=== PATIENT | male | born 1960 | race Caucasian/White ===

== ENCOUNTER 2016-06-28 12:43 | Observation (INO) | payer OTHER ==
[2016-06-28] VITALS (10 sets, daily range): BP systolic 120–154; BP diastolic 69–94; PULSE 51–81; RESP 12–20; O2SAT 95–100
[~2016-06-28] VITALS: Ht 193 cm; Wt 125.7 kg
[~2016-06-28 12:43] MED LIST: ACET-2561 PO; ALPR0.25 PO; CYCL10TA9 PO; DABI150C PO; METF500T4 PO; METO25TA6 PO; PROP150T PO; TEST200V21 IM; TURM500C7 PO; UBID10CA9 PO
--- NOTE | 2016-06-28 13:02 | ED.REPORT ---
HPI-Chest Pain 40 and Over Date of Service June 28, 2016 ED Provider: Clement Wilkinson MD Mr. Quinones is a 55-year-old male with a history of diabetes and atrial fibrillation on Xarelto s/p cardiac ablation who presents to the ED with a chief complaint of chest tightness. He states that pain began 11:40 this morning, while driving, he rates it 5/10. States "it feels like when my kid is sitting on my chest." Denies history of DE, CAD. Admits to feeling hot and diaphoretic. Denies nausea, vomiting, shortness of breath, abdominal pain, or other symptoms. Recent history of diverticulitis, for which he is finishing his antibiotics. Patient is seen by Dr. Mcdonough for cardiology. Nursing Notes Stated Complaint: CHEST PAIN TIGHTNESS Chief Complaint: Chest Pain Nursing Notes Reviewed: Yes Allergies: Coded Allergies: fluticasone (Verified Allergy, Unknown, UNKNOWN, 06/28/16) rizatriptan (Verified Allergy, Unknown, UNKNOWN, 06/28/16) sumatriptan (Verified Allergy, Unknown, UNKNOWN, 06/28/16) atorvastatin (Verified Adverse Reaction, Severe, fatigue & myalgias, ) Scheduled Glimepiride (Glimepiride) 1 Mg Tablet 1 MG PO DAILYAC Levofloxacin (Levofloxacin) 750 Mg Tablet 750 MG PO DAILY Metformin (Metformin) 500 Mg Tablet 1,000 MG PO BIDWM Metoprolol Tartrate (Metoprolol Tartrate) 25 Mg Tablet 37.5 MG PO QAM Metoprolol Tartrate (Metoprolol Tartrate) 25 Mg Tablet 25 MG PO QPM Metronidazole (Metronidazole) 500 Mg Tablet 500 MG PO TID Pravastatin (Pravastatin) 40 Mg Tablet 40 MG PO QPM Propafenone ER (Propafenone ER) 225 Mg Cap.er.12h 225 MG PO BID Rivaroxaban (Xarelto) 20 Mg Tablet 20 MG PO HS Scheduled PRN Acetaminophen (Extra Strength Non-Aspirin) 500 Mg Tablet 500 MG PO Q6H PRN PRN PRN Cyclobenzaprine (Cyclobenzaprine) 10 Mg Tablet 10 MG PO BID PRN PRN Spasm Dicyclomine (Dicyclomine) 20 Mg Tablet 20 MG PO TID PRN PRN For GI Cramps General Time Seen by MD: 13:00 Chief Complaint Chest pain Hx Obtained From: Patient Arrived By: Walk-in Sudden in Onset?: No Onset Occurred: 1 - 4 hours ago Symptom Duration: Since onset Location: : Chest left: Chest right Quality: Painful (Tight), Pressure Severity: Current: Pain level 5 out of 10 Context Related History: Reports: Arrhythmia, Diabetes mellitus Recent Healthcare: No recent doctor visit Past Medical History Past Medical History RONALDO Right sided kidney stone Dyslipidemia, stopped his statin 2 months ago Colon polyps -last colonoscopy 01/2012 polyp removed with cold forceps Left shoulder injury with previous steroid injections Hypogonadism -MRI pituitary 2012 minimal right frontal chronic microvascular white matter ischemic changes, no pituitary microadenoma Atrial fibrillation Reports: Diabetes mellitus, Transient ischemic attack Past Surgical History Hernia repair Cardiac ablation Reports: Tonsillectomy Family History Uncle has CHF Brother had "bought" with A-fib Several cousins with A-fib Father of stroke at 72 Father had heart attack Smoking History Never Smoker Social History Drug Use: Denies drug use Other Social History: Good social support, 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 Denies heavy lifting. Ambulatory Status Independent Review of Systems Review of Systems Note: + Feels hot Constitutional: Denies: Fever Respiratory: Denies: Non-productive cough, Shortness of breath Cardiovascular: Reports: Chest pain (Tightness, pressure) GI: Denies: Abdominal pain, Nausea, Vomiting Skin: Reports Diaphoresis Complete sys rev & neg: except as marked. Physical Exam General: Well appearing, well developed, obese, no acute distress. Head: Atraumatic, normocephalic. Eyes: No scleral icterus or injection. No discharge. Vision grossly intact. ENT: Voice clear, hearing grossly intact. Respiratory: Regular rate and rhythm. Breath sounds present, clear to auscultation and equal bilaterally. No respiratory distress. No increased work of breathing, speaks in complete sentences. Cardiovascular: Regular rate and rhythm, without murmur, gallop or rub. No pedal edema. Gastrointestinal: Abdomen protuberant and non-tender without guarding or rebound. Bowel sounds normoactive. Chest: Normal to inspection. Tender to palpation over fourth rib adjacent to sternum. Skin: Appears flushed in the face and slightly sweaty. Otherwise warm and dry Neurological: Grossly nonfocal. Psychological: Alert and oriented. Speech appropriate, linear and logical. Behavior appropriate. Initial Vital Signs Vital Signs (First) Date Time Temp Pulse Resp B/P Pulse Ox O2 Delivery O2 Flow Rate FiO2 06/28/16 12:46 36.8 72 16 154/94 97 Room Air 06/28/16 13:40 2 Initial VS: Reviewed, Vital signs abnormal (elevated blood pressure) Interpretation & Diagnostics Lab Results Interpretation Result Diagram: 06/28/16 1254 06/28/16 1254 Test 06/28/16 12:54 White Blood Count 5.5th/mm3 (3.8-10.1) Red Blood Count 4.85mil/mm3 (4.40-5.80) Hemoglobin 14.8g/dL (13.8-17.2) Hematocrit 42.7% (41.0-50.0) Mean Corpuscular Volume 88.0fL (81-100) Mean Corpuscular Hemoglobin 30.5pg (27.0-35.0) Mean Corpuscular Hemoglobin Concent 34.7% (32.0-37.0) Red Cell Distribution Width 12.7% (12.3-15.4) Platelet Count 255bil/L (150-400) Neutrophils (%) (Auto) 52.6% (40-74) Lymphocytes (%) (Auto) 35.8% (14-46) Monocytes (%) (Auto) 9.6% (4-12) Eosinophils (%) (Auto) 1.1% (0-5) Basophils (%) (Auto) 0.7% (0-3) Sodium Level 139mEq/L (134-144) Potassium Level 4.2mEq/L (3.5-5.2) Chloride Level 101mEq/L (97-108) Carbon Dioxide Level 21mmol/L (18-29) Blood Urea Nitrogen 15mg/dL (6-24) Creatinine 0.77mg/dL (0.76-1.27) Estimat Glomerular Filtration Rate 112mL/min (>59) Glucose Level 138mg/dL (60-99) Calcium Level 9.7mg/dL (8.5-10.1) Magnesium Level 2.0mg/dL (1.6-2.6) Total Bilirubin 0.4mg/dL (0.0-1.2) Aspartate Amino Transf (AST/SGOT) 24U/L (0-50) Alanine Aminotransferase (ALT/SGPT) 31U/L (0-44) Alkaline Phosphatase 73U/L (25-150) Troponin T < 0.010ug/L (0.0-0.011) Total Protein 7.0g/dL (6.4-8.4) Albumin 4.1g/dL (3.4-5.0) Hold Parsons Top Tube Received (Received) ECG Interpretation ECG Interpretation: Sinus rhythm rate 65 Borderline prolonged GA interval Time: 12:55 Interpreted by: ED physician ECG Interpretation: Sinus rhythm rate 78 Borderline prolonged GA interval Repeat ECG unchanged with worsening pain Time: 13:27 Interpreted by: ED physician X-Ray Chest Interpretation Chest Xray Interpretation: IMPRESSION: Stable chest. No acute cardiopulmonary process is evident. Dictated by: Deonte Carey M.D. on 06/28/2016 at 12:26 View: Portable, 1 view Interpretation / Wet Read by: Interpret - Radiologist Re-Eval/Medical Decision Source of Hx: Old records Time of Eval: 13:24 Patient Status: Condition improved Re-Evaluation/Progress Note: Patient rechecked. Additional history obtained. Time of Eval: 15:23 Patient Status: Condition improved Re-Evaluation/Progress Note: Patient reports one 7-minute episode of more severe pain around 14:30. Otherwise patient's pain has greatly reduced. Discussed with patient x-ray and lab results, diagnosis, and plan for admit. Patient agrees with plan for care and all questions were addressed. Consultation : Referral / Consult Name: Reji Ríos MD Consulted With: Hospitalist Call Returned at: 15:45 Licensing Officer: Agrees with eval, Agrees with plan, Accepts admit Counseled Regarding: Diagnosis, Lab results, Need for admission Discharge & Departure Primary Impression: Acute coronary syndrome Disposition: ADMITTED TO HOSPITAL Discharge Condition All VS Reviewed: Yes Condition: Improved Referrals: Marguerite Workman MD (PCP) EDSupervising Provider for APC: Clement Wilkinson MDibbipin Attestation Portions of this note were transcribed by Minnie Tripp. I, Dr. Wilkinson, personally performed the history, physical exam, and medical decision-making; I reviewed and confirmed the accuracy of the information in the transcribed note. Signed by: Luiz Walls, 06/28/2016, 16:19 copies to: Marguerite Workman MD, Kirk H MD June 28, 2016 13:02 Claudy Jiménez PA-C June 28, 2016 13:12 MINNIE TRIPP June 28, 2016 13:37
[2016-06-28] MEDS ORDERED: Ondansetron 2 mg/mL 2 mL Inj IVPUSH ONE (13:05)
[2016-06-28] MEDS ORDERED: 0.9% Sodium Chloride 1,000 ML IV ONE (13:05)
[2016-06-28 13:09] LABS: BASOPHILS % (AUTO) 0.7 % (0-3); EOSINOPHILS % (AUTO) 1.1 % (0-5); MONOCYTES % (AUTO) 9.6 % (4-12); Mean Corpuscular Hemoglobin 30.5 pg (27.0-35.0); NEUTROPHILS % (AUTO) 52.6 % (40-74); Platelet Count 255 bil/L (150-400)
[2016-06-28] MEDS ORDERED: MeTOProlol 1 mg/mL 5 mL Inj IVPUSH PRN (13:25)
[2016-06-28] MEDS ORDERED: Nitroglycerin 2% 1 Gm Ointment TOPICAL ONE (13:25)
--- NOTE | 2016-06-28 13:28 | DRSVH ---
PROCEDURE: X-RAY CHEST ONE VIEW, PORTABLE ([id number]) INDICATIONS: chest pain TECHNIQUE: One view of the chest was acquired. COMPARISON: [facility], CT, CT CHEST ABD PELVIS W CON, 04/28/2016, 14:55. [facility], CR, CHEST 1VW (PORTABLE), 07/05/2014, 3:17. FINDINGS: Surgical changes and devices: None. Lungs and pleura: No pleural effusions or pneumothorax. Lungs are clear. Mediastinum: Mediastinal contours appear normal. Heart size is normal. Bones and chest wall: No suspicious bony lesions. Overlying soft tissues appear unremarkable. IMPRESSION: Stable chest. No acute cardiopulmonary process is evident. Dictated by: Deonte Carey M.D. on 06/28/2016 at 12:26 Approved by: Deonte Carey M.D. on 06/28/2016 at 12:27
[2016-06-28 13:36] LABS: TROPONIN T < 0.010 ug/L (0.0-0.011)
[2016-06-28] MEDS ORDERED: PROP225C6 PO (15:08)
[2016-06-28] MEDS ORDERED: RIVA20TA PO (15:08)
[2016-06-28] MEDS ORDERED: PRAV40TA PO (15:09)
[2016-06-28] MEDS ORDERED: GLIM1TAB PO (15:09)
[2016-06-28] MEDS ORDERED: DICY20TA10 PO (15:10)
[2016-06-28] MEDS ORDERED: LEVO750T39 PO (15:12)
[2016-06-28] MEDS ORDERED: METR500T19 PO (15:12)
[2016-06-28] MEDS ORDERED: Ondansetron 2 mg/mL 2 mL Inj IVPUSH PRN ×2 (16:10→18:15)
[2016-06-28] MEDS ORDERED: Heparin 25K Unit/500mL 0.45 NS 25,000 UNIT in IV Premix 1 EACH IV SCH (16:10)
[2016-06-28] MEDS ORDERED: Alum-Mag Hydrox-Simeth 30 mL Suspension PO PRN ×2 (16:10→18:15)
[2016-06-28] MEDS: Heparin 5,000 Unit/mL Inj IVPUSH PRN ×2 (16:18→23:07)
--- NOTE | 2016-06-28 17:15 | NUR ---
Admit: Patient arrived to [facility] @ approx 1650. Ambulated from stretcher to bed. Alert & oriented x 3. Complains of chest pressure 5/10 on pain scale. Report from ER states that patient having unresolved chest pressure 2-5/10 on pain scale. Heparin infusing @ 1000u/hr. Also, complains of HILLIARD 7/10 on pain scale. Nitro ointment on left chest. Tylenol 975mg administered, Ice pack to neck. MD notified in person of chest pressure and HILLIARD. SB 1st degree AV block rate of 54 per television script writer. Denies SOB. Bed rails up x 2, bed in low and locked position.
[2016-06-28] MEDS ORDERED: Polyethylene Glycol (PEG) 17 Gm Powder PO PRN (18:15)
[2016-06-28] MEDS ORDERED: Glucose 40% Oral Gel 15 Gm Tube PO PRN (18:20)
--- NOTE | 2016-06-28 20:02 | HP ---
[address] [address] HISTORY AND PHYSICAL PATIENT: EVON WYATT V : 1960 MR#: [id number] ADMIT: 06/28/2016 JOB ID: [id number] PRIMARY CARE PROVIDER: Jorge Workman MD. Patient admitted from the ED, observational status, Green Team. CHIEF COMPLAINT: Chest pain. HISTORY OF PRESENT ILLNESS: This is a 55-year-old male who has no known coronary artery disease but has had an ablation for AFib with Dr. Mcdonough. 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 It kind of came on, kind of waxed and waned and then got a little bit better. He was thinking of stopping at [facility] [place], but as it was getting better, he kept driving and drove all the way back up to [place] and it got a little bit worse, so he came over here to [facility] and was evaluated in the ED by Dr. Wilkinson and we would like to admit him for unstable angina, having placed him on IV heparin, noting some continued pain. His EKG shows some nonspecific inferior and lateral ST-T wave changes. No ST elevation. His initial troponin was negative. This pain was nonradiating and located under just to the left of his sternum. It is not positional. The patient says at 1st if he pushed on it, it hurt a little bit, but now he denies that. We repeated an EKG in the room and that is unchanged at this point in time. He has not had this before. Patient is also on his last day of Flagyl and Levaquin p.o. for recent diverticulitis symptoms having resolved at this point in time. REVIEW OF SYSTEMS: A complete review of systems obtained for all pertinent positives in HPI as above, rest of systems negative. PAST MEDICAL HISTORY: 1. Obstructive sleep apnea on CPAP. 2. Dyslipidemia. 3. Colon polyps 4. AFib ablation two years ago with Dr. Mcdonough. 5. Currently treated for diverticulitis. 6. Colon polyps. 7. Left shoulder injury. 8. Hypogonadism. 9. Tonsillectomy. 10. Hernia repair. MEDICATIONS: 1. Levaquin and Flagyl p.o. 2. Xarelto 20 at bedtime. 3. Metoprolol 25 in the morning, 37.5 in the evening. 4. Pravastatin 40 daily. 5. Propafenone ER 225 b.i.d. 6. Glimepiride mg q.a.m. 7. Metformin 100 mg b.i.d. ALLERGIES: None. SOCIAL HISTORY: Lives his . Consumes no alcohol and is not smoking any tobacco at this point in time. FAMILY HISTORY: Colon cancer in his brother who developed colorectal cancer at age 49, father with coronary artery disease and CABG at 70. PHYSICAL EXAMINATION: Afebrile, heart rate 54, blood pressure 146/80, respiratory rate 20, O2 sats 100% on 2 liters. The patient looks totally comfortable sitting up. He kind of gregarious. He does note a little bit of this discomfort in his chest, but he is not in any distress. Skin is warm and dry. Eyes: PERRLA. EOMs intact. Mouth shows adequate hydration. No lesions. Cardiac exam is regular. No overt murmur. Lungs are clear to auscultation and percussion. Abdomen is soft, nonacute, benign. Extremities show no edema and has no tenderness. Cranial nerves 2-12 are intact. No gross motor or sensory defects noted. DIAGNOSES: 1. Unstable angina. As the patient is continuing to have chest discomfort, I did call and review this with Dr. Hastings on-call for Cardiology. At this time, he would like to continue the heparin and aspirin and I will be continuing with the patient's pravastatin and metoprolol. As he is on heparin, we will not continue his Xarelto at this point in time. Will get repeat EKGs, troponins now, echo, review those and make further decisions depending on his symptoms and the results of those tests. 2. History of atrial fibrillation, present on admission, stable. Continue Propafenone, metoprolol, pravastatin. 3. Obstructive sleep apnea, present on admission, stable. Continue patient's home CPAP. 4. Diverticulitis, present on admission, resolved. I am going to stop the patient's antibiotics and wonder whether the Flagyl may have upset the patient's stomach somewhat. Will give him a little Protonix, but we will be stopping those antibiotics tonight. 5. Type 2 diabetes. We are going to hold the patient's glimepiride and metformin at this point in time and provide correction insulin and get a baseline hemoglobin A1c. 6. CODE STATUS: FULL CODE. 7. Disposition: Patient lives with his . His primary care provider is Jorge Workman. Blood Splatter Analyst is Dr. Mcdonough.
[2016-06-28] MEDS: Pantoprazole 4 mg/mL 10 mL Inj IVPUSH SCH (20:58)
[2016-06-28] MEDS: Insulin LISPRO 300 Unit/3 mL Inj SUBQ SCH (22:00)
--- NOTE | 2016-06-28 23:19 | NUR ---
Transfer to PCC room 2000 Patient c/o chest pain 5/10 and headache 8/10. Given 2mg morphine IV. 30 minutes later patient reports pain is still 2/10 chest pain ad pressure and headache 4/10. Vitals stable. Tele in place. Heparin gtt infusing at 20mls/hr or 1000units/hr. nitro paste on chest. patient transferred to 2000 with all belongings and family at bedside. will continue to monitor.
[2016-06-29] VITALS (7 sets, daily range): BP systolic 114–129; BP diastolic 72–78; PULSE 55–68; RESP 18–20; O2SAT 97–99
[2016-06-29 01:24] LABS: APPEARANCE,URINE CLEAR (CLEAR,HAZY); COLOR,URINE YELLOW (YELLOW); OCCULT BLOOD,URINE NEGATIVE (NEGATIVE); UROBILINOGEN,URINE NORMAL (NORMAL)
--- NOTE | 2016-06-29 04:24 | NUR ---
Chest Pain / IV Heparin / Tele Pt transferred to PCC from [facility] for Chest Pain. Pt arrived on PCC with Chest pain 2/10 and Headache 4/10. Nitro-paste still on Pts chest. VS stable and afebrile, RA sats 98%. Pt medicated with IV Morphine 4 mg and Chest pain resolved with no further c/o chest pain this shift. Tele SB-SR with 1st AVB with HR 50-60s, per Pot Room Supervisor. IV Heparin infusion per Cardiac Protocol. Care onging.
[2016-06-29] MEDS: Heparin 5,000 Unit/mL Inj IVPUSH PRN ×2 (04:35→11:11)
[2016-06-29] MEDS: Pantoprazole 4 mg/mL 10 mL Inj IVPUSH SCH (07:26)
[2016-06-29] MEDS: Insulin LISPRO 300 Unit/3 mL Inj SUBQ SCH ×2 (07:30→11:54)
--- NOTE | 2016-06-29 12:12 | NUR ---
Social Work: Screen D: Per EMR review, pt is a 55 year old male admitted for ACS. [facility]. PCP is Jessie Workman MD. NOK is Rosamaria Stacie, . Advanced directives not completed- pt provided with information. Readmit score is low, 1/. Pt lives in [place] with his . 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 Pt has been I during admission and no sw needs are anticipated at this time. A: Pt who is I at baseline. P: Anticiapte pt to discharge home when medically stable; OVERLOCK HEMMER to continue to follow. SVETLANA Cartwright
--- NOTE | 2016-06-29 12:17 | DRSVH ---
[facility] [address] [place] [address] Echocardiogram Report Name: EVON WYATT III Study Date: 06/29/2016 Height : 76 in Hospital Exam Location: [facility] Weight : 277 lb Gender: Male BSA: 2 .5 m2 : 1960 Age: 55 yrs BP: 12 2/74 mmHg Reason For Study: CHEST PAIN Ordering Physician: [facility], HOSPITALIST Performed By: Rosamaria Zuleta Referring Physician: DR. YOST, DR. Mateus AYERS Interpretation Summary The left ventricle is normal in size. Left ventricular systolic function is normal. The ejection fraction is estimated to be 60-65%. There are no focal wall motion abnormalities. Assessment of diastolic parameters indicates a relaxation abnormality of the left ventricle, consistent with normal filling pressures. The right ventricle is normal in size and function. Right ventricular systolic pressure is estimated to be 23 mmHg plus the clinically estimated CVP which cannot be estimated on this exam. The left atrium is mildly dilated. Right atrial size is normal. There is no significant valvular heart disease. The aortic root is normal size. No significant changes since last study. Procedure: A two-dimensional transthoracic echocardiogram with color flow and Doppler was performed. The apical views were difficult to obtain and are suboptimal in quality. The subcostal views were difficult to obtain and are suboptimal in quality. A contrast injection of Definity was performed to improve assessment of LV function. Contrast was injected into an intravenous site in the left arm. A total of 4 cc of contrast was given. Comparison is made with the echocardiogram of 07-28-2014. The patient was in sinus during the exam. Left Ventricle: The left ventricle is normal in size. Left ventricular wall thickness is at the upper limits of normal. Left ventricular systolic function is normal. The ejection fraction is estimated to be 60-65%. There are no focal wall motion abnormalities. Spectral Doppler of the mitral valve is reversed, with an E/A wave ratio < 1.0. Assessment of diastolic parameters indicates a relaxation abnormality of the left ventricle, consistent with normal filling pressures. Right Ventricle: The right ventricle is normal in size and function. Atria: The left atrium is mildly dilated. Right atrial size is normal. There is no Doppler evidence for an atrial septal defect. Mitral Valve: The mitral valve leaflets appear normal. There is no evidence of stenosis, fluttering, or prolapse. There is no mitral regurgitation noted. Aortic Valve: The aortic valve is trileaflet. The aortic valve opens well. No aortic regurgitation is present. Tricuspid Valve: The tricuspid valve leaflets are thin and pliable. There is a trace or physiologic amount of tricuspid regurgitation. Right ventricular systolic pressure is estimated to be 23 mmHg plus the clinically estimated CVP which cannot be estimated on this exam. Pulmonic Valve: The pulmonic valve is not well seen, but is grossly normal. There is no pulmonic valvular regurgitation. There is no significant valvular heart disease. Great Vessels: The aortic root is normal size. The dimensions of the ascending aorta are normal. The pulmonary artery is normal size. The inferior vena cava was not visualized. Pericardium/ Pleura There is no pericardial effusion. There is no pleural effusion. MMode/2D Measurements & Calculations LVIDd: 5.2 cm LA dimension: 5.2 cm RA long axis LVOT diam: 2.2 cm LVIDs: 3.0 cm AoV Opening FS: 41.0 % LA A2 area: 24.5 cm RA area EPSS: 0.58 cm LA A4 area: 27.6 cm Ao root diam IVSd: 1.1 cm LA length (vol) : 20.0 cm LVPWd: 1.1 cm RA vol asc Aorta Diam LA vol: 90.6 ml : 57.0 ml LA vol index RA Ao Arch Diam (Prox : 22.4 mm2 Trans): 3.1 cm : 35.6 ml/m2 LV hsu. diameter/BSA LV sys. diameter/BSA RVD2 (mid) (cm/m^2): 2.0 (cm/m^2): 1.2 : 4.0 cm Doppler Measurements & Calculations Ao V2 max MV E max rodrigo MV E/A: 0.77 TR max rodrigo : 201.1 cm/sec : 78.5 cm/sec Med Peak E' Rodrigo : 238.5 cm/sec Ao max P.2 mmHg MV A max rodrigo TR max PG Ao mean P.2 mmHg : 101.7 cm/sec E/E' med: 11.6 : 22.8 mmHg LVOT Max Rodrigo MV P1/2t: 95.1 msec Lat Peak E' Rodrigo PA V2 max : 129.0 cm/sec : 92.6 cm/sec E/E' lat: 9.2 PA mean PG TENNILLE(I,D): 2.4 cm E/e' average sev ratio: 0.65 PA Accel Time Pulm A Revs Dur : 0.13 sec MV A dur : 0.16 sec MV P1/2t max rodrigo Ao V2 mean LV V1 max PG PA V2 mean : 126.7 cm/sec : 65.9 cm/sec Ao V2 VTI: 42.2 cm LV V1 VTI MVA(P1/2t): 2.3 cm2 : 27.5 cm TENNILLE(V,D): 2.4 cm2 TENNILLE indexed to BSA Pulm A Revs Dur - MV A (cm^2/m^2): 0.96 Dur: -0.01 msec Reading Physician:PM
--- NOTE | 2016-06-29 13:44 | NUR ---
stress test patient left for stress test at 1345hrs. denies CP/SOB. satellite project site monitor notified that patient will be off tele for test. Heparin gtt on hold for test, per Dr Cordova's orders.
--- NOTE | 2016-06-29 15:02 | NUR ---
returned from stress test. denies CP/SOB. heparin gtt restarted.
--- NOTE | 2016-06-29 16:30 | PCM.DIMED ---
Discharge Instructions Date of Service June 29, 2016 Dates of Hospitalization June 28, 2016 at 16:29 Discharge Diagnosis Discharge Diagnosis Chest pain Test Results ETT was significant for the patient having chest pain but normal EKG during the test. Patient had a hypertensive blood pressure response. Diet Heart Healthy Activity No restrictions (The patient may resume his usual activities gradually as tolerated.) Call your provider Fever or Chills, Shortness of breath, Bleeding, Chest pain, Vomitting, Weakness (unilateral) Patient Instructions Follow-up Provider: Honorio Browning MD Follow-up with PCP in: 1 week Provider: Darwin Mcdonough MD Follow-up in: 2 weeks Mid-level Provider (F9): Marguerite Workman MD Follow-up with Mid-level in: 2 weeks Lars Cordova MD June 29, 2016 16:30
--- NOTE | 2016-06-29 17:29 | NUR ---
Discharge home discharge instructions, medications, and follow-up recommendations reviewed with patient and spouse. Questions answered at this time. patient verbalized understanding and agrees with plan of care. patient stated that he will call PCP and his business development recruiter to schedule his follow-up appointments first thing in the morning.
--- NOTE | 2016-06-29 19:57 | PCM.DC.MED ---
Discharge Summary Date of Service June 29, 2016 Dates of Hospitalization Date of Hospital Admission June 28, 2016 at 16:29 Date of Discharge: June 29, 2016 Providers: Admitting Physician: Reji Ríos MD Primary Care Physician: Marguerite Workman MD Attending Physician: Reji Ríos MD Diagnosis at Time of Discharge Diagnosis at Time of Discharge Chest pain Procedures XRay, CTs & MRIs PROCEDURE: X-RAY CHEST ONE VIEW, PORTABLE ([id number]) INDICATIONS: chest pain TECHNIQUE: One view of the chest was acquired. COMPARISON: [facility], CT, CT CHEST ABD PELVIS W CON, 04/28/2016, 14:55. [facility], CR, CHEST 1VW (PORTABLE), 07/05/2014, 3:17. FINDINGS: Surgical changes and devices: None. Lungs and pleura: No pleural effusions or pneumothorax. Lungs are clear. Mediastinum: Mediastinal contours appear normal. Heart size is normal. Bones and chest wall: No suspicious bony lesions. Overlying soft tissues appear unremarkable. IMPRESSION: Stable chest. No acute cardiopulmonary process is evident. Dictated by: Deonte Carey M.D. on 06/28/2016 at 12:26 Approved by: Deonte Carey M.D. on 06/28/2016 at 12:27 Cardiac Echo Impression Echocardiogram Report Name: EVON WYATT III Study Date: 06/29/2016 Height : 76 in Hospital Exam Location: [facility] Weight : 277 lb Gender: Male BSA: 2 .5 m2 : 1960 Age: 55 yrs BP: 12 2/74 mmHg Reason For Study: CHEST PAIN Ordering Physician: [facility], HOSPITALIST Performed By: Rosamaria Zuleta Referring Physician: DR. WORKMAN, DR. Mateus MCDONOUGH Interpretation Summary The left ventricle is normal in size. Left ventricular systolic function is normal. The ejection fraction is estimated to be 60-65%. There are no focal wall motion abnormalities. Assessment of diastolic parameters indicates a relaxation abnormality of the left ventricle, consistent with normal filling pressures. The right ventricle is normal in size and function. Right ventricular systolic pressure is estimated to be 23 mmHg plus the clinically estimated CVP which cannot be estimated on this exam. The left atrium is mildly dilated. Right atrial size is normal. There is no significant valvular heart disease. The aortic root is normal size. No significant changes since last study. Other Diagnostics During ETT stress testing patient did have chest pain towards the end of the test with blood pressure of 200/96. Of note patient was not allowed his metoprolol morning dose prior to the test. Patient experience no EKG changes throughout the test. Brief History This is a 55-year-old male who has no known coronary artery disease but has had an ablation for AFib with Dr. Mcdonough. 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 It kind of came on, kind of waxed and waned and then got a little bit better. He was thinking of stopping at [place], but as it was getting better, he kept driving and drove all the way back up to [place] and it got a little bit worse, so he came over here to [facility] and was evaluated in the ED by Dr. Wilkinson and we would like to admit him for unstable angina, having placed him on IV heparin , noting some continued pain. His EKG shows some nonspecific inferior and lateral ST-T wave changes. No ST elevation. His initial troponin was negative. Patient was brought in under observation to the hospital service for further evaluation and treatment. Hospital Course This is a 55-year-old male who has no known coronary artery disease but has had an ablation for AFib with Dr. Mcdonough. 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 It kind of came on, kind of waxed and waned and then got a little bit better. He was thinking of stopping at [place], but as it was getting better, he kept driving and drove all the way back up to [place] and it got a little bit worse, so he came over here to [facility] and was evaluated in the ED by Dr. Wilkinson and we would like to admit him for unstable angina, having placed him on IV heparin , noting some continued pain. His EKG shows some nonspecific inferior and lateral ST-T wave changes. No ST elevation. His initial troponin was negative. Patient was brought in under observation to the hospital service for further evaluation and treatment. 1. Unstable angina. As the patient is continuing to have chest discomfort, the case was reviewed with Dr. Hastings on-call for Cardiology. At this time, he would like to continue the heparin and aspirin and commended continuing with the patient's pravastatin and metoprolol. As he is on heparin, we did not continue his Xarelto at this point in time. We obtained repeat EKGs, troponins now, echo, review those and make further decisions depending on his symptoms and the results of those tests. Case was reviewed with Dr. Honorio Browning who recommended that the patient have an exercise treadmill test which patient had this afternoon. Patient did well however his blood pressure got up to 200/96 without having his metoprolol today and she had some chest pain. However, there was no EKG changes. Dr. Browning recommended discharging the patient home. 2. History of atrial fibrillation, present on admission, stable. Continue Propafenone, metoprolol, pravastatin. 3. Obstructive sleep apnea, present on admission, stable. Continue patient's home CPAP. 4. Diverticulitis, present on admission, resolved. We stopped the patient's antibiotics and wondered whether the Flagyl may have upset the patient's stomach somewhat. We gave him a little Protonix. 5. Type 2 diabetes. We held the patient's glimepiride and metformin at this point in time and provide correction insulin and got a baseline hemoglobin A1c which was 6.4. 6. CODE STATUS: FULL CODE. 7. 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 Mcdonough. Exam Vital Signs (Last) Date Time Temp Pulse Resp B/P Pulse Ox O2 Delivery O2 Flow Rate FiO2 06/29/16 16:37 64 20 129/78 98 Room Air 06/29/16 12:51 36.7 06/28/16 16:53 2.00 Exam General: Patient is in no apparent distress. HEENT: Head is atraumatic and normocephalic. Eyes: Pupils are equally round and reactive to light and accommodation. Extraocular muscles are intact. Sclera are white, anicteric. Subconjunctival mucosa is pink. Ears and nose are unremarkable. Oropharynx: There is no mucosal lesions, there is no thrush, there is no pharyngitis. Neck: Is supple, there are no nodes, or masses or tenderness. Chest: Is clear to auscultation and percussion. There are no rales, rhonchi, wheezes or rubs. Heart: Rate, rhythm is regular. There is no murmur, rub or gallop. Abdomen: Good bowel sounds are present. Abdomen is soft, nontender, no organomegaly or masses were appreciated. Extremities: Are symmetrical and well perfused. There is no edema, there is no cellulitis, no rash. Neurologic: There are no focal neurological deficits. Cranial nerves II through XII are intact. There are no sensory or motor deficits. Psychiatric: Patients mood is calm and shows no sign of agitation. Genital: Deferred Rectal: Deferred Test 06/28/16 12:54 06/29/16 00:43 06/29/16 03:57 06/29/16 12:05 White Blood Count 5.5th/mm3 (3.8-10.1) Red Blood Count 4.85mil/mm3 (4.40-5.80) Hemoglobin 14.8g/dL (13.8-17.2) Hematocrit 42.7% (41.0-50.0) Mean Corpuscular Volume 88.0fL (81-100) Mean Corpuscular Hemoglobin 30.5pg (27.0-35.0) Mean Corpuscular Hemoglobin Concent 34.7% (32.0-37.0) Red Cell Distribution Width 12.7% (12.3-15.4) Platelet Count 255bil/L (150-400) Neutrophils (%) (Auto) 52.6% (40-74) Lymphocytes (%) (Auto) 35.8% (14-46) Monocytes (%) (Auto) 9.6% (4-12) Eosinophils (%) (Auto) 1.1% (0-5) Basophils (%) (Auto) 0.7% (0-3) Erythrocyte Sedimentation Rate 4mm/hr (0-30) D-Dimer < 0.50mg/L FEU (<0.50) Hemoglobin A1c 6.4% (4.8-5.6) Magnesium Level 2.0mg/dL (1.6-2.6) Total Bilirubin 0.4mg/dL (0.0-1.2) Aspartate Amino Transf (AST/SGOT) 24U/L (0-50) Alanine Aminotransferase (ALT/SGPT) 31U/L (0-44) Alkaline Phosphatase 73U/L (25-150) Total Creatine Kinase 82U/L (21-232) Total Protein 7.0g/dL (6.4-8.4) Albumin 4.1g/dL (3.4-5.0) Procalcitonin 0.05ng/mL (0.00-0.08) Thyroid Stimulating Hormone (TSH) 1.150uIU/mL (0.450-4.500) Hold Parsons Top Tube Received (Received) Urine Color Yellow (YELLOW) Urine Appearance Clear (CLEAR,HAZY) Urine pH 6.0 (5.0-8.0) Urine Specific [place] 1.010 (1.003-1.035) Urine Protein Negativemg/dL (NEG,TRACE) Urine Glucose (UA) Negativemg/dL (NEGATIVE) Urine Ketones Negativemg/dL (NEGATIVE) Urine Occult Blood Negative (NEGATIVE) Urine Nitrite Negative (NEGATIVE) Urine Bilirubin Negative (NEGATIVE) Urine Urobilinogen Normalmg/dL (NORMAL) Urine Leukocyte Esterase Negative (NEGATIVE) Urine RBC 0-2/hpf (0-2) Urine WBC 0-5/hpf (0-5) Urine Epithelial Cells Occasional/hpf (NONE-MOD) Urine Crystals None seen (NONE SEEN) Urine Bacteria None/hpf (NONE-FEW) Urine Hyaline Casts None/lpf (NONE) Urine Granular Casts None seen (NONE SEEN) Urine Waxy Casts None seen (NONE SEEN) Urine Red Blood Cell Casts None seen (NONE SEEN) Urine White Blood Cell Casts None seen (NONE SEEN) Urine Mucus None seen (None Seen) Urine Trichomonas None seen (NONE SEEN) Urine Yeast None (NONE SEEN) Urinalysis Comment None Urine Culture Reflexed Not indicated Hold Urine Received (Received) Sodium Level 137mEq/L (134-144) Potassium Level 4.3mEq/L (3.5-5.2) Chloride Level 101mEq/L (97-108) Carbon Dioxide Level 22mmol/L (18-29) Blood Urea Nitrogen 14mg/dL (6-24) Creatinine 0.88mg/dL (0.76-1.27) Estimat Glomerular Filtration Rate 96mL/min (>59) Glucose Level 120mg/dL (60-99) Calcium Level 8.7mg/dL (8.5-10.1) Troponin T < 0.010ug/L (0.0-0.011) Test 06/29/16 16:15 Activated Partial Thromboplast Time 32.7sec (22.8-33.0) Discharge Medications Discharge Medications Glimepiride (Glimepiride) 1 Mg Tablet 1 MG PO DAILYAC (Reported) Metformin (Metformin) 500 Mg Tablet 1,000 MG PO BIDWM (Reported) Metoprolol Tartrate (Metoprolol Tartrate) 25 Mg Tablet 37.5 MG PO QAM (Reported ) Metoprolol Tartrate (Metoprolol Tartrate) 25 Mg Tablet 25 MG PO QPM (Reported) Pravastatin (Pravastatin) 40 Mg Tablet 40 MG PO QPM (Reported) Propafenone ER (Propafenone ER) 225 Mg Cap.er.12h 225 MG PO BID (Reported) Rivaroxaban (Xarelto) 20 Mg Tablet 20 MG PO HS (Reported) As needed Acetaminophen (Extra Strength Non-Aspirin) 500 Mg Tablet 500 MG PO Q6H PRN PRN PRN (Reported) Cyclobenzaprine (Cyclobenzaprine) 10 Mg Tablet 10 MG PO BID PRN PRN Spasm ( Reported) Dicyclomine (Dicyclomine) 20 Mg Tablet 20 MG PO TID PRN PRN For GI Cramps ( Reported) Followup Plan Disposition: Patient is being discharged home. Discharge Diet: Heart Healthy Discharge Activity: No restrictions (The patient may resume his usual activities gradually as tolerated.) Follow-up Provider: Honorio Browning MD Follow-up with PCP in: 1 week Provider: Darwin Mcdonough MD Follow-up in: 2 weeks Mid-level Provider: Marguerite Workman MD Follow-up with Mid-level in: 2 weeks Time spent Time spent on discharging this patient was greater than 35 minutes, over half of which was involved in counseling and coordination of care. copies to: Darwin Mcdonough MD, Christopher E MD June 29, 2016 19:57
== END 2016-06-29 17:20 | disposition home or self-care (01) ==
LOC: SED 12:43 → MPC 16:23 → PCC 21:24
PROVIDERS: ADMIT Hospitalist; ATTEND Hospitalist
DX: I24.9 Acute ischemic heart disease, unspecified (principal); E11.9 Type 2 diabetes mellitus without complications; I48.91 Unspecified atrial fibrillation; G47.33 Obstructive sleep apnea (adult) (pediatric); E23.0 Hypopituitarism; E78.5 Hyperlipidemia, unspecified; K57.30 Diverticulosis of large intestine without perforation or abscess without bleeding; Z86.73 Personal history of transient ischemic attack (TIA), and cerebral infarction without residual deficits; Z87.442 Personal history of urinary calculi; Z79.84 Long term (current) use of oral hypoglycemic drugs; Z88.8 Allergy status to other drugs, medicaments and biological substances; Z79.01 Long term (current) use of anticoagulants; Z86.010 Personal history of colon polyps
CPT/HCPCS: 36415; 71010; 80048; 80053; 81000; 82550; 83036; 83735; 84145; 84443; 84484; 85025; 85378; 85651; 85730; 93005; 93017; 96374; 96375; 96376; 99285; C8929; G0378; J1644; J1815; J1885; J2270; J2405; J7030; Q9957

== ENCOUNTER → 2016-11-01 | Day surgery (SDC) | payer OTHER ==
[2016-11-01] VITALS (10 sets, daily range): BP systolic 109–131; BP diastolic 65–97; PULSE 52–72; RESP 14–20; O2SAT 94–98
[~2016-11-01] VITALS: Ht 193 cm; Wt 129.5 kg
[~2016-11-01] MED LIST changes: +0.9% Sodium Chloride 500 ML IV SCH; +Atropine 1 mg/10 mL (Code) Syringe ONE; -DABI150C PO; +DICY20TA10 PO; +GLIM1TAB PO; +Methohexital 10 mg/mL 50 mL Inj IV SCH; +NITR0.4T SL; +PRAV40TA PO; -PROP150T PO; +PROP225C6 PO; +RIVA20TA PO; -TEST200V21 IM; -TURM500C7 PO; -UBID10CA9 PO
[2016-11-01 11:48] LABS: BASOPHILS % (AUTO) 0.8 % (0-3); Mean Corpuscular Hemoglobin 30.9 pg (27.0-35.0); Mean Corpuscular Volume 88.8 fL (81-100); NEUTROPHILS % (AUTO) 46.2 % (40-74); Platelet Count 225 bil/L (150-400)
[2016-11-01 12:01] LABS: INR 1.02 ratio
--- NOTE | 2016-11-01 13:06 | NUR ---
[facility] Admit to [facility] bed 9 at 1100 for AFib cardioversion. Patient placed on monitor and confirmed rhythm AFib. HL placed and labs drawn. Consent confirmed. History and medications reviewed. Cardioversion at 200 J X 1 complete and successful to convert patient to SR. When fully awake, taking PO, ambulatory and void discharge instructions reviewed with patient and . Written information given and questions answered. Home with at 1300.
--- NOTE | 2016-11-01 13:51 | PROCED ---
[address] [address] PROCEDURE NOTE PATIENT: EVON WYATT V : 1960 MR#: [id number] ADMIT: 11/01/2016 JOB ID: [id number] DATE OF SERVICE: 11/01/2016 PREOPERATIVE DIAGNOSIS(ES): Atrial fibrillation. POSTOPERATIVE DIAGNOSIS(ES): Atrial fibrillation. PROCEDURE PERFORMED: Direct current cardioversion. SURGEON: Ssis Etl Developer: Darwin Mcdonough MD, electrophysiology attending SEDATION: 1 mg of Versed and 50 mg Brevital were utilized for an appropriate level of sedation. INDICATION: The patient is a pleasant 56-year-old man with recurrent symptomatic atrial fibrillation. After discussion of the risks and benefits of cardioversion and confirmation of adequate anticoagulation, he opted to proceed. PROCEDURE DESCRIPTION: Following informed signed consent, the patient was taken to the procedure room in the fasting state where defibrillator patches were placed in the anterior and posterior positions. After adequate sedation, a 200 joule biphasic synchronized shock was used to convert him to sinus rhythm. He will be allowed to recover and discharge home for close followup. COMPLICATIONS: None. BLOOD LOSS: None. IMPRESSION: Successful direct current cardioversion. PLAN: 1. Recovery and discharge from the [facility]. 2. Continue current medication regimen. 3. Continue with plan for ablation in the coming weeks. ATTENDING STATEMENT: Darwin Mcdonough MD, electrophysiology attending, was present for and supervised/performed all aspects of this procedure.
== END | disposition home or self-care (01) ==
LOC: SOUO 00:30
PROVIDERS: ATTEND Internal Medicine Cardiovascular Disease
DX: I48.0 Paroxysmal atrial fibrillation (principal); Z79.899 Other long term (current) drug therapy; Z79.01 Long term (current) use of anticoagulants; E78.5 Hyperlipidemia, unspecified; I10 Essential (primary) hypertension; E11.9 Type 2 diabetes mellitus without complications; Z79.84 Long term (current) use of oral hypoglycemic drugs
CPT/HCPCS: 36415; 80048; 85025; 85610; 92960; 93005; 94799; 99152; J2250; J7040